=== PATIENT | male | born 1960 | race Caucasian/White ===

== ENCOUNTER 2024-03-09 10:10 | Outpatient (RCR) | payer MEDICARE, SELFPAY | END 2024-09-05 23:59 | disposition home or self-care (01) | LOC: CCIC 10:10 | PROVIDERS: PCP Family Medicine; Visit Provider Radiology Radiation Oncology | DX: C78.1 Secondary malignant neoplasm of mediastinum (principal) | CPT/HCPCS: 99211 ==